=== PATIENT | male | born 1960 | race Caucasian/White ===

== ENCOUNTER 2019-03-14 08:24 | Emergency (ER) | payer OTHER ==
[2019-03-14 08:46] VITALS: BP 131/66
--- NOTE | 2019-03-14 09:10 | Diagnostic Imaging Report ---
BRIDGET SINGH (FOOD SERVICE DRIVER) - ER [facility] [address] [facility].[address] [id number] Report Submission Date: Mar 14, 2019 8:58:43 AM CDT Patient Study Name: JOSE NORRIS Date: Mar 14, 2019 8:34:47 AM CDT Modality Type: DX Gender: M Description: WRIST 3 VIEWS : 56 Institution: [facility] Physician: BRIDGET SINGH) - ER Exam: Left wrist. History: Injury. PA, lateral and oblique view of the left wrist are submitted. No signs of acute fracture or dislocations are identified. Degenerate changes at the radiocarpal joint and at the 1st carpometacarpal joint is noted. No other soft tissue abnormalities identified. Impression: Degenerative changes. Electronically signed on Mar 14, 2019 8:58:43 AM CDT by: Gm LIZ
--- NOTE | 2019-03-14 09:35 | ED Physician Documentation ---
Upper Extremity Injury - HISTORIAN Historian: patient - HPI Stated Complaint: L wrist pain/swelling Chief Complaint: Upper Extremity Problem Onset: yesterday Where: work Severity: moderate Further Comments: yes (58 year old male patient presents with left wrist pain. Patient reports wrist pain and swelling that began yesterday while he was twisting barbed wire fence and felt the wrist pop.) - ROS CONST: no problems - PAST HX Past History: other (HLD) Allergies/Adverse Reactions: Allergies Allergy/AdvReac Type Severity Reaction Status Date / Time Penicillins Allergy Mild Verified 06/22/16 17:27 Home Medications: Ambulatory Orders Medication Instructions Recorded Aspirin EC [Ecotrin] 81 mg PO DAILY 03/14/19 Rosuvastatin Calcium [Crestor] 5 mg PO HS 03/14/19 - SOCIAL HX Smoking History: non-smoker - FAMILY HX Family History: denies: none - VITAL SIGNS Vital Signs: Vital Signs Temp Pulse Resp BP Pulse Ox 98.1 F 79 16 131/66 96 03/14/19 09:32 03/14/19 09:32 03/14/19 09:32 03/14/19 09:32 03/14/19 09:32 - REVIEWED ASSESSMENTS Nursing Assessment Reviewed: Yes Vitals Reviewed: Yes Progress - Progress Progress: Xray negative. Cannot rule out cellulitis. 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 Will cover for cellulitis and place on short course of NSAIDs. Wrist splint for comfort. Patient reports "redness is from sun burn". Irregular area 5cm x 4 cm over scaphoid bone of erythema and hyperthermia. No c/o pain with ROM, flexion and extension, supination and pronation. ED Results Lab/Radiology - Radiology Radiology Impressions: Exam: Left wrist. History: Injury. PA, lateral and oblique view of the left wrist are submitted. No signs of acute fracture or dislocations are identified. Degenerate changes at the radiocarpal joint and at the 1st carpometacarpal joint is noted. No other soft tissue abnormalities identified. Impression: Degenerative changes. Electronically signed on Mar 14, 2019 8:58:43 AM CDT by: Gm Carreno - Orders Orders: ED Orders Category Date Time Status Wrist Splint 1T Care 03/14/19 09:25 Active WRIST 3 VIEWS OR MORE [RAD] Stat Exams 03/14/19 08:38 Completed Upper Extremity Injury Physic - Physical Exam General Appearance: mild distress Hand: normal inspection, non-tender, no evidence of injury, normal ROM Wrist: normal ROM, soft tissue tenderness (left wrist over scaphoid bone; erythem noted with hyperthermia, puncture rosaura) Elbow/Forearm: normal inspection, non-tender, no evidence of injury, normal ROM Neuro/Vascular/Tendon: no vascular compromise, motor nml, sensation nml, ROM nml Resp/CVS: no resp. distress, reg. rate & rhythm Discharge Clincal Impression: Cellulitis of left wrist Left wrist sprain Qualifiers: Encounter type: initial encounter Qualified Code(s): S63.502A - Unspecified sprain of left wrist, initial encounter Referrals: Primary Doctor,No [Primary Care Provider] - 2 Days Condition: Stable Disposition: 01 HOME, SELF-CARE Decision to Admit: NO Decision Time: 09:20
== END 2019-03-14 09:32 | disposition home or self-care (01) ==
LOC: ED 08:24
DX: S62.502A Fracture of unspecified phalanx of left thumb, initial encounter for closed fracture (principal); L03.114 Cellulitis of left upper limb; X58.XXXA Exposure to other specified factors, initial encounter; Y99.8 Other external cause status
CPT/HCPCS: 73110